=== PATIENT | female | born 1985 | race Caucasian/White ===

== ENCOUNTER 2016-08-02 13:27 | Emergency (ER) | payer MEDICAID ==
[~2016-08-02] VITALS: Ht 149.9 cm; Wt 71.7 kg
[2016-08-02 13:34] VITALS: BP 133/73
--- NOTE | 2016-08-02 14:01 | NUR ---
to bed 1
--- NOTE | 2016-08-02 14:07 | NUR ---
PT PRESENTS TO ER W/ C/O THROAT PAIN, DIFFICULTY OF SWALLOWING X3 DAYS,NO DROOLING NOTED. PT STATES SHE'S HAVING SLIGHT CHEST PAIN FROM COUGHING,HX HYPOTHYROIDISM, PT AAO, SKIN WARM TO TOUCH RESP. EVEN AND UNLABORED, NO SOB NOTED, LUNGS CLEAR,.HOB ELEVATED.ALL MONITORS PLACED IN.SAFETY MEASURE INSTITUTED,NEDDS ATTENDED. MADE AWARE OF PT'S CONDITION.
--- NOTE | 2016-08-02 14:35 | NUR ---
DR PATTEN AT BEDSIDE
[2016-08-02] MEDS ORDERED: methylPREDNISolone SS 125 MG in WATER STERILE 2 ML IM ONE (14:40)
[2016-08-02] MEDS ORDERED: LIDOCAINE VISCOUS 2% 20 ML UDC PO ONE (14:40)
[2016-08-02] MEDS ORDERED: AMOXICILLIN 500 MG CAP PO ONE (14:40)
--- NOTE | 2016-08-02 15:00 | NUR ---
PT ASKED FOR A JUICE. PROVIDED PT W/ORANGE JUICE AND PT IS GRATEFUL
[2016-08-02 15:32] VITALS: BP 131/75
--- NOTE | 2016-08-02 15:33 | NUR ---
Patient discharged with v/s stable. Written and verbal after care instructions given and explained. Patient alert, oriented and verbalized understanding of instructions. Ambulatory with steady gait. All questions addressed prior to discharge. ID band removed. Patient advised to follow up with PMD. Rx of AUGMENTIN,LIDOCAINE,TYLENOL AND PREDNISONE given. Patient educated on indication of medication including possible reaction and side effects. Opportunity to ask questions provided and answered.PT STABLE NO DISTRESS NOTED.
== END 2016-08-02 15:33 | disposition home or self-care (01) ==
LOC: MED 13:27
DX: J03.90 Acute tonsillitis, unspecified (principal); E11.9 Type 2 diabetes mellitus without complications; Z88.6 Allergy status to analgesic agent
CPT/HCPCS: 81002; 81025; 96372; 99283; J2930

== ENCOUNTER 2017-04-24 18:51 | Emergency (ER) | payer SELFPAY ==
[~2017-04-24] VITALS: Ht 149.9 cm; Wt 63.7 kg
[2017-04-24 18:59] VITALS: BP 136/89
[2017-04-24 19:03] VITALS: BP 136/89
--- NOTE | 2017-04-24 19:04 | NUR ---
PATIENT PRESENTS TO ED WITH C/O RT FOOT PAIN 8/10; PER PT THINK SOMEBODY STEP ON HER FOOT A WK AGO HX; DENIES RX; DENIES DENIES N/V/D; SKIN IS PINK/WARM/DRY; AAOX4 WITH EVEN AND STEADY GAIT; LUNGS CLEAR BL; HR EVEN AND REGULAR; PT DENIES ANY FEVER, CP, SOB, OR COUGH AT THIS TIME; PATIENT STATES PAIN OF 8/10 AT THIS TIME; VSS; PATIENT POSITIONED FOR COMFORT; HOB ELEVATED; BEDRAILS UP X2; BED DOWN. ER MD MADE AWARE OF PT STATUS.
--- NOTE | 2017-04-24 19:09 | NUR ---
PT TAKEN TO BED 11
[2017-04-24] MEDS ORDERED: HYDROcodone/APAP 10/325 MG 1 TAB TAB PO STA (20:13)
[2017-04-24] MEDS ORDERED: AMOXICILLIN 500 MG CAP PO ONE (20:15)
--- NOTE | 2017-04-24 20:55 | NUR ---
Patient discharged with v/s stable. Written and verbal after care instructions given and explained. Patient alert, oriented and verbalized understanding of instructions. Ambulatory with steady gait. All questions addressed prior to discharge. ID band removed. Patient advised to follow up with PMD. Rx of NORCO AND AMOXICILLIN given. Patient educated on indication of medication including possible reaction and side effects. Opportunity to ask questions provided and answered.
== END 2017-04-24 20:55 | disposition home or self-care (01) ==
LOC: MED 18:51
DX: K08.89 Other specified disorders of teeth and supporting structures (principal); H66.92 Otitis media, unspecified, left ear; E11.9 Type 2 diabetes mellitus without complications; Z88.8 Allergy status to other drugs, medicaments and biological substances
CPT/HCPCS: 81002; 81025; 99283

== ENCOUNTER 2017-07-25 21:36 | Emergency (ER) | payer MEDICAID ==
[~2017-07-25] VITALS: Ht 149.9 cm; Wt 64.5 kg
[2017-07-25 21:44] VITALS: BP 125/77
--- NOTE | 2017-07-25 22:07 | NUR ---
pt ambulated to er bed 11
--- NOTE | 2017-07-25 22:08 | NUR ---
32/F CAME IN W C/O SOB/COUGH X 1 WEEK. PT REPORTS NONPRODUCTIVE COUGH WITH C/O PLEURITIC PAIN. ALL LUNG SOUNDS CBTA WITH EXP WHEEZING TO RT LOBES, SAT 98% RA, 20RR EVEN AND UNLABORED. DENIES FEVER/CHILLS. PMH: ASTHMA, NO RX
[2017-07-25] MEDS ORDERED: AZITHROMYCIN 250 MG TAB PO ONE (22:35)
[2017-07-25] MEDS ORDERED: predniSONE 20 MG TAB PO ONE (22:35)
[2017-07-25] MEDS ORDERED: ALBUTEROL 0.083% 2.5 MG/3 ML NEBU INH ONE (22:35)
[2017-07-25] MEDS ORDERED: IPRATROPIUM 0.02% 0.5 MG/2.5 ML NEBU INH ONE (22:35)
--- NOTE | 2017-07-25 23:43 | NUR ---
Patient discharged with v/s stable. Written and verbal after care instructions given and explained. Patient alert, oriented and verbalized understanding of instructions. Ambulatory with steady gait. All questions addressed prior to discharge. ID band removed. Patient advised to follow up with PMD. Rx of ZITHROMAX, PREDNISONE, ROBITUSSIN DM given. Patient educated on indication of medication including possible reaction and side effects. Opportunity to ask questions provided and answered.
[2017-07-26 00:01] VITALS: BP 134/74
== END 2017-07-25 23:43 | disposition home or self-care (01) ==
LOC: MED 21:36
DX: J45.909 Unspecified asthma, uncomplicated (principal); F17.210 Nicotine dependence, cigarettes, uncomplicated; Z88.5 Allergy status to narcotic agent
CPT/HCPCS: 71045; 94640; 99283; J7512; J7613; J7644

== ENCOUNTER 2018-05-15 23:00 | Emergency (ER) | payer MEDICAID ==
[~2018-05-15] VITALS: Ht 149.9 cm; Wt 68.9 kg
[2018-05-15 23:14] VITALS: BP 142/82
--- NOTE | 2018-05-15 23:18 | NUR ---
PT AMBULATORY TO [facility].
--- NOTE | 2018-05-16 00:10 | NUR ---
PT TO CHAIR E
[2018-05-16] MEDS ORDERED: ALBUTEROL SULFATE/IPRATROPIU 3 ML SOL IH ONE (00:40)
[2018-05-16] MEDS ORDERED: predniSONE 20 MG TAB PO ONE (00:40)
[2018-05-16 01:05] VITALS: BP 135/86
--- NOTE | 2018-05-16 01:05 | NUR ---
Patient discharged with v/s stable. Written and verbal after care instructions given and explained. Patient alert, oriented and verbalized understanding of instructions. Ambulatory with steady gait. All questions addressed prior to discharge. ID band removed. Patient advised to follow up with PMD. Rx of Albuterol inhaler, Guaiafenisen AC, and Prednisone given. Patient educated on indication of medication including possible reaction and side effects. Opportunity to ask questions provided and answered.
== END 2018-05-16 01:05 | disposition home or self-care (01) ==
LOC: MED 23:00
DX: J06.9 Acute upper respiratory infection, unspecified (principal); J45.901 Unspecified asthma with (acute) exacerbation; F17.210 Nicotine dependence, cigarettes, uncomplicated; E07.9 Disorder of thyroid, unspecified; Z88.6 Allergy status to analgesic agent; Z85.41 Personal history of malignant neoplasm of cervix uteri; Z98.51 Tubal ligation status
CPT/HCPCS: 36415; 87804; 94640; 94760; 99283; J7512; J7620; 99284

== ENCOUNTER 2018-08-07 00:07 | Emergency (ER) | payer MEDICAID ==
[~2018-08-07] VITALS: Ht 149.9 cm; Wt 70.3 kg
--- NOTE | 2018-08-07 00:20 | NUR ---
PT TAKEN TO BED 9
--- NOTE | 2018-08-07 00:35 | NUR ---
BIB S/O W/ C/O A SOAR THROAT. PT STATES TO HAVING THROAT PAIN WHEN SWALLOWING AND COUGHING THAT STARTED TODAY. TONSILS HAVE MODERATE REDNESS AND SWELLING, NO DISCHARGE NOTED AT THIS TIME. DENIES N/V/D; SKIN IS PINK/WARM/DRY; AAOX4 WITH EVEN AND STEADY GAIT; LUNGS CLEAR BL; HR EVEN AND REGULAR; PT DENIES ANY FEVER, CP,OR SOB AT THIS TIME; PATIENT STATES PAIN OF 7/10 AT THIS TIME; VSS; PATIENT POSITIONED FOR COMFORT; HOB ELEVATED; BEDRAILS UP X1; BED DOWN. ER MD MADE AWARE OF PT STATUS. PMH: CERVICAL CANCER, ASTHMA, DM, THYROID RX: DENIES
[2018-08-07] MEDS ORDERED: DEXAMETHASONE 10 MG/ML VIAL PO ONE (01:30)
[2018-08-07 01:49] VITALS: BP 134/81
--- NOTE | 2018-08-07 01:49 | NUR ---
Patient discharged with v/s stable. Written and verbal after care instructions given and explained. Patient alert, oriented and verbalized understanding of instructions. Ambulatory with steady gait. All questions addressed prior to discharge. ID band removed. Patient advised to follow up with PMD. Rx of AUGMENTIN, NAPROSYN given. Patient educated on indication of medication including possible reaction and side effects. Opportunity to ask questions provided and answered.
== END 2018-08-07 01:49 | disposition home or self-care (01) ==
LOC: MED 00:07
DX: J32.0 Chronic maxillary sinusitis (principal); J45.909 Unspecified asthma, uncomplicated; E11.9 Type 2 diabetes mellitus without complications; E07.9 Disorder of thyroid, unspecified; Z85.41 Personal history of malignant neoplasm of cervix uteri; Z88.6 Allergy status to analgesic agent
CPT/HCPCS: 87081; 87804; 99283; J1100; 36415

== ENCOUNTER 2018-08-09 05:02 | Emergency (ER) | payer MEDICAID ==
[~2018-08-09] VITALS: Ht 149.9 cm; Wt 70.3 kg
[2018-08-09 05:10] VITALS: BP 125/88
[2018-08-09] MEDS ORDERED: ONDANSETRON 4 MG ODT PO ONE (05:15)
--- NOTE | 2018-08-09 05:18 | NUR ---
PT TO ED WITH C/O ABD ACHING WITH N/V/D X 1 DAY. PT ALSO REPORTING GENERALIZED WEAKNESS. BOWEL SOUNDS PRESENT TO ALL QUADRANTS. DENIES PAIN UPON PALPATION. PT PLACED INTO BED, PENDING MD CARDOSO.
[2018-08-09] MEDS ORDERED: NACL 0.9% 1,000 ML IV ONE (05:50)
[2018-08-09] MEDS ORDERED: methylPREDNISolone SS 125 MG/2 ML VIAL IVP ONE (05:50)
[2018-08-09] MEDS ORDERED: ONDANSETRON 4 MG/2 ML VIAL IVP ONE (05:50)
[2018-08-09 07:06] VITALS: BP 133/71
--- NOTE | 2018-08-09 07:06 | NUR ---
Patient discharged with v/s stable. Written and verbal after care instructions given and explained. Patient alert, oriented and verbalized understanding of instructions. Ambulatory with steady gait. All questions addressed prior to discharge. ID band removed. Patient advised to follow up with PMD. Rx of Zofran and Prednisone given. Patient educated on indication of medication including possible reaction and side effects. Opportunity to ask questions provided and answered.
--- NOTE | 2018-08-11 21:33 | NUR ---
CALLED PT TO HAVE HER COME BACK IN FOR ER MD SKINNER
== END 2018-08-09 07:06 | disposition home or self-care (01) ==
LOC: MED 05:02
DX: J02.8 Acute pharyngitis due to other specified organisms (principal); B97.89 Other viral agents as the cause of diseases classified elsewhere; R11.2 Nausea with vomiting, unspecified; J45.909 Unspecified asthma, uncomplicated; Z85.41 Personal history of malignant neoplasm of cervix uteri; Z88.6 Allergy status to analgesic agent
CPT/HCPCS: 87081; 87804; 96361; 96374; 96375; 99283; J2405; J2930; J7030; Q0162; 36415

== ENCOUNTER 2018-08-11 23:05 | Emergency (ER) | payer MEDICAID ==
[~2018-08-11] VITALS: Ht 149.9 cm; Wt 70.3 kg
[2018-08-11 23:15] VITALS: BP 127/76
--- NOTE | 2018-08-11 23:39 | NUR ---
Patient ambulated to bed 2. RN evaluating patient at bedside.
--- NOTE | 2018-08-11 23:45 | NUR ---
PT BIB FAMILY FOR N/V/D AND HEADACHE X4 DAYS. PT REPORTS THROBING HEADACHE AT 9/10 ALONG WITH BODY ACHES AT 9/10. PT REPORTS UNABLE TO KEEP FOOD DOWN, AND FEELS DEHYDRATED. PT REPORTED BEING TOLD TO COME BACK INTO ER FOR POSITIVE INFLUENZA A RESULTS. VSS. ER MD TO SEE PT. MEDHX:CERVICAL CANCER, ASTHMA, HYPOTHYROIDISM RX: SYNTHROID
[2018-08-12] MEDS ORDERED: ONDANSETRON 4 MG/2 ML VIAL IVP ONE (00:05)
[2018-08-12] MEDS ORDERED: fentaNYL 0.05 MG/ML VIAL IVP ONE (00:05)
[2018-08-12] MEDS ORDERED: NACL 0.9% 1,000 ML IV ONE (00:05)
[2018-08-12] MEDS ORDERED: PENICILLIN G BENZATHINE L-A 1.2 MU/2 ML SYR IM ONE (00:05)
[2018-08-12 00:52] LABS: BASOPHILS % (AUTO) 0.2 % (0.0-2.0); EOSINOPHILS # (AUTO) 0.3 K/uL (0-0.4); EOSINOPHILS % (AUTO) 2.6 % (0.0-4.0); HEMATOCRIT 38.3 % (36-48); HEMOGLOBIN 12.7 g/dL (12.0-16.0); LYMPHOCYTES % (AUTO) 19.1 % (20.5-51.1); MEAN CORPUSCULAR HEMOGLOBIN 28 pg (27-31); MEAN CORPUSCULAR HGB CONC 33 g/dL (33-37); MEAN CORPUSCULAR VOLUME 83.3 fL (80-94); MONOCYTES # (AUTO) 0.9 K/uL (0.8-1.0); MONOCYTES % (AUTO) 8.4 % (1.7-9.3); NEUTROPHILS # (AUTO) 7.2 K/uL (1.8-7.7); NEUTROPHILS % (AUTO) 69.7 % (42.2-75.2); PLATELET COUNT (AUTO) 239 K/uL (140-450); RED CELL DISTRIBUTION WIDTH 12.7 % (11.6-13.7); WHITE BLOOD COUNT (AUTO) 10.4 K/uL (4.8-10.8)
[2018-08-12 01:04] LABS: ANION GAP 8.1 (8-16); CREATININE 0.9 mg/dL (0.6-1.3); POTASSIUM 3.1 mmol/L (3.5-5.1)
[2018-08-12 01:09] LABS: ALBUMIN 3.3 g/dL (3.4-5.0); TOTAL BILIRUBIN 0.3 mg/dL (0.0-1.0)
[2018-08-12] MEDS ORDERED: POTASSIUM CHLORIDE 20% 40 MEQ/15 ML UDC PO ONE (01:15)
[2018-08-12 01:51] VITALS: BP 113/74
--- NOTE | 2018-08-12 01:51 | NUR ---
Patient discharged with v/s stable. Written and verbal after care instructions given and explained. Patient alert, oriented and verbalized understanding of instructions. Ambulatory with steady gait. All questions addressed prior to discharge. ID band removed. Patient advised to follow up with PMD. Rx of ZOFRAN, MOTRIN, AMOXICILLIN, AND LIDOCAINE given. Patient educated on indication of medication including possible reaction and side effects. Opportunity to ask questions provided and answered. PT IS WAITING IN LOBBY FOR BOYFRIEND TO PICK HER UP.
== END 2018-08-12 01:57 | disposition home or self-care (01) ==
LOC: MED 23:05
DX: J02.0 Streptococcal pharyngitis (principal); E87.6 Hypokalemia; J45.909 Unspecified asthma, uncomplicated; E11.9 Type 2 diabetes mellitus without complications; E07.9 Disorder of thyroid, unspecified; Z85.41 Personal history of malignant neoplasm of cervix uteri; Z79.82 Long term (current) use of aspirin
CPT/HCPCS: 36415; 80053; 83690; 85025; 87040; 96372; 96374; 96375; 99283; J0561; J2405; J3010; J7030

== ENCOUNTER 2020-06-20 17:59 | Emergency (ER) | payer MEDICAID ==
[~2020-06-20] VITALS: Ht 149.9 cm; Wt 69.4 kg
[2020-06-20 18:34] VITALS: BP 135/86
[2020-06-20 19:40] VITALS: BP 135/86
--- NOTE | 2020-06-20 19:45 | NUR ---
SEEN AND EXAMINED BY IMELDA
--- NOTE | 2020-06-20 20:09 | NUR ---
PATIENT ELOPED FROM FACILITY. DISCHARGE INSTRUCTIONS NOT GIVEN TO PATIENT. DR. HURST NOTIFIED.
== END 2020-06-20 20:09 | disposition left against medical advice (07) ==
LOC: MED 17:59
DX: R05 Cough (principal); R06.02 Shortness of breath; M54.5 Low back pain; Z53.21 Procedure and treatment not carried out due to patient leaving prior to being seen by health care provider

== ENCOUNTER 2020-08-20 09:17 | Emergency (ER) | payer MEDICAID, OTHER ==
[~2020-08-20] VITALS: Ht 149.9 cm; Wt 73.9 kg
[2020-08-20 09:20] VITALS: BP 126/95
--- NOTE | 2020-08-20 09:24 | NUR ---
PT AMBULATED TO BED 8.
--- NOTE | 2020-08-20 09:32 | NUR ---
Dr. Dale at pt bedside for further evaluation.
[2020-08-20] MEDS ORDERED: MORPHINE SULFATE 2 MG/ML SYR IVP ONE (09:40)
[2020-08-20] MEDS ORDERED: NACL 0.9% 500 ML IV ONE (09:40)
[2020-08-20 09:50] LABS: BASOPHILS # (AUTO) 0.1 K/uL (0.00-0.22); BASOPHILS % (AUTO) 0.6 % (0.0-2.0); EOSINOPHILS # (AUTO) 0.1 K/uL (0-0.4); HEMOGLOBIN 13.2 g/dL (12.0-16.0); LYMPHOCYTES # (AUTO) 1.9 K/uL (2.5-16.5); LYMPHOCYTES % (AUTO) 20.1 % (20.5-51.1); MEAN CORPUSCULAR HEMOGLOBIN 27 pg (27-31); MEAN CORPUSCULAR HGB CONC 33 g/dL (33-37); MEAN CORPUSCULAR VOLUME 80.8 fL (80-94); MONOCYTES # (AUTO) 0.6 K/uL (0.8-1.0); MONOCYTES % (AUTO) 6.5 % (1.7-9.3); NEUTROPHILS # (AUTO) 6.6 K/uL (1.8-7.7); NEUTROPHILS % (AUTO) 71.8 % (42.2-75.2); PLATELET COUNT (AUTO) 299 K/uL (140-450); RED BLOOD CELL COUNT(AUTO) 4.96 MIL/uL (4.20-5.40); WHITE BLOOD COUNT (AUTO) 9.2 K/uL (4.8-10.8)
--- NOTE | 2020-08-20 09:57 | NUR ---
Pt taken to CT via rad.
[2020-08-20 10:08] LABS: ALBUMIN 4.1 g/dL (3.4-5.0); ANION GAP 14.8 (8-16); CARBON DIOXIDE 25.5 mmol/L (21-32); POTASSIUM 4.3 mmol/L (3.5-5.1); TOTAL BILIRUBIN 0.3 mg/dL (0.0-1.0)
--- NOTE | 2020-08-20 10:09 | NUR ---
Pt brought backl from CT via [facility] [place].
[2020-08-20] MEDS ORDERED: ONDA4TAB PO (10:57)
[2020-08-20] MEDS ORDERED: HYDR-5080 PO (10:57)
[2020-08-20] MEDS ORDERED: MORPHINE SULFATE 4 MG/ML SYR IVP ONE (11:10)
[2020-08-20 12:00] VITALS: BP 126/72
--- NOTE | 2020-08-20 12:00 | NUR ---
Patient discharged with v/s stable. Written and verbal after care instructions given and explained. Patient alert, oriented and verbalized understanding of instructions. Wheel Chair Assisted with to car. All questions addressed prior to discharge. ID band removed. Patient advised to follow up with PMD. Rx of norco 7.5-325mg PO q6h prn pain, and zofran 4mg odt prn q6h n/v given. Patient educated on indication of medication including possible reaction and side effects. Opportunity to ask questions provided and answered.
--- NOTE | 2020-08-20 12:17 | NUR ---
Family in ER lobby to take patient home.
--- NOTE | 2020-08-20 12:25 | NUR ---
Pt w/c assisted to car.
[2020-08-23] MEDS ORDERED: DOCU-299 PO (16:04)
[2020-08-23] MEDS ORDERED: ACET-9525 PO (16:04)
[2020-08-23] MEDS ORDERED: CEPH250C16 PO (16:04)
[2020-08-23] MEDS ORDERED: POLY17PD46 PO (16:04)
== END 2020-08-20 12:25 | disposition home or self-care (01) ==
LOC: MED 09:17
DX: N20.0 Calculus of kidney (principal); R03.0 Elevated blood-pressure reading, without diagnosis of hypertension; J45.909 Unspecified asthma, uncomplicated; F17.210 Nicotine dependence, cigarettes, uncomplicated; Z88.6 Allergy status to analgesic agent
CPT/HCPCS: 36415; 74176; 80053; 81002; 81025; 85025; 96374; 96376; 99284; J2270; J7030

== ENCOUNTER 2021-04-24 10:28 | Emergency (ER) | payer MEDICAID, OTHER, SELFPAY ==
[~2021-04-24] VITALS: Ht 149.9 cm; Wt 68.0 kg
[~2021-04-24 10:28] MED LIST: ACET-9525 PO; CEPH250C16 PO; DOCU-299 PO; HYDR-5080 PO; ONDA4TAB PO; POLY17PD46 PO
[2021-04-24 10:49] VITALS: BP 120/80
--- NOTE | 2021-04-24 11:09 | NUR ---
pt c/o left foot pain, swelling, noticed 2 wounds to bottom of toes 3 days ago. foot is swollen with redness.
[2021-04-24] MEDS ORDERED: HYDROcodone/APAP 5/325 MG 1 TAB TAB PO ONE (11:45)
[2021-04-24] MEDS ORDERED: SULF-59 PO (12:23)
[2021-04-24] MEDS ORDERED: CEPH-588 PO (12:23)
[2021-04-24] MEDS ORDERED: IBUP-2213 PO (12:23)
[2021-04-24] MEDS ORDERED: ACET-8386 PO (12:23)
[2021-04-24 12:51] VITALS: BP 120/80
--- NOTE | 2021-04-24 12:51 | NUR ---
Patient discharged with v/s stable. Written and verbal after care instructions given and explained. Patient alert, oriented and verbalized understanding of instructions. Ambulatory with steady gait. All questions addressed prior to discharge. ID band removed. Patient advised to follow up with PMD. Rx of HYDROCODONE/ACETAMINOPHEN, KEFLEX, IBUPROFEN, AND BACTRIM given. Patient educated on indication of medication including possible reaction and side effects. Opportunity to ask questions provided and answered.
== END 2021-04-24 12:51 | disposition home or self-care (01) ==
LOC: MED 10:28
DX: S90.922A Unspecified superficial injury of left foot, initial encounter (principal); X58.XXXA Exposure to other specified factors, initial encounter; Y93.89 Activity, other specified; Y92.89 Other specified places as the place of occurrence of the external cause; Y99.8 Other external cause status
CPT/HCPCS: 73660; 90471; 90715; 99283

== ENCOUNTER 2021-10-14 20:48 | Emergency (ER) | payer MEDICAID ==
[~2021-10-14] VITALS: Ht 149.9 cm; Wt 64.9 kg
[~2021-10-14 20:48] MED LIST changes: +ACET-8386 PO; +CEPH-588 PO; +IBUP-2213 PO; +SULF-59 PO
[2021-10-14 21:08] VITALS: BP 134/78
--- NOTE | 2021-10-14 22:38 | NUR ---
Dr. Diamond examining patient.
[2021-10-14] MEDS ORDERED: MORPHINE SULFATE 4 MG/ML SYR IVP ONE (22:45)
[2021-10-14] MEDS ORDERED: NACL 0.9% 1,000 ML IV SCH (22:45)
[2021-10-14 23:00] LABS: BASOPHILS % (AUTO) 0.4 % (0.0-2.0); EOSINOPHILS # (AUTO) 0.1 K/uL (0-0.4); EOSINOPHILS % (AUTO) 1.3 % (0.0-4.0); HEMATOCRIT 36.7 % (36-48); HEMOGLOBIN 12.2 g/dL (12.0-16.0); LYMPHOCYTES # (AUTO) 0.8 K/uL (2.5-16.5); LYMPHOCYTES % (AUTO) 13.9 % (20.5-51.1); MEAN CORPUSCULAR HEMOGLOBIN 26 pg (27-31); MEAN CORPUSCULAR HGB CONC 33 g/dL (33-37); MONOCYTES # (AUTO) 0.7 K/uL (0.8-1.0); MONOCYTES % (AUTO) 11.9 % (1.7-9.3); NEUTROPHILS # (AUTO) 4.3 K/uL (1.8-7.7); NEUTROPHILS % (AUTO) 72.5 % (42.2-75.2); PLATELET COUNT (AUTO) 218 K/uL (140-450); RED BLOOD CELL COUNT(AUTO) 4.76 MIL/uL (4.20-5.40); RED CELL DISTRIBUTION WIDTH 14.2 % (11.6-13.7); WHITE BLOOD COUNT (AUTO) 5.9 K/uL (4.8-10.8)
--- NOTE | 2021-10-14 23:07 | NUR ---
36 Y/O F BIBS FROM HOME C/O OF BACK PAIN X 1 WEEK, STARTING FROM THE BACK OF HEAD DOWN TH SPINAL CORD. "IT FEELS LIKE ELECTRICAL SHOCK" "I HAVE TINGLING SENSATIONS" DENIES INJURY PMH: MS, HYPOTHYROID, KIDNEY STONES, CERVICAL CA, ASTHMA MEDS:DENIES ASPIRIN ALLERGY
[2021-10-14 23:09] LABS: APPEARANCE,URINE CLEAR (CLEAR); BILIRUBIN,URINE NEGATIVE (NEGATIVE); BLOOD, URINE NEGATIVE (NEGATIVE); COLOR,URINE YELLOW (YELLOW); LEUKOCYTE ESTERASE ,URINE TRACE (NEGATIVE); NITRITE, URINE POSITIVE (NEGATIVE); UGLUCOSE NEGATIVE (NEGATIVE)
[2021-10-14 23:23] LABS: RBC,URINE 0-5 /HPF (0-5); WBC,URINE 20-60 /HPF (0-5)
[2021-10-14 23:26] LABS: ALBUMIN 3.5 g/dL (3.4-5.0); ANION GAP 11.5 (8-16); CARBON DIOXIDE 28.4 mmol/L (21-32); CREATININE 0.9 mg/dL (0.6-1.3); POTASSIUM 3.9 mmol/L (3.5-5.1); TOTAL BILIRUBIN 0.1 mg/dL (0.0-1.0)
--- NOTE | 2021-10-14 23:39 | NUR ---
PT TAKEN TO CT
--- NOTE | 2021-10-14 23:48 | NUR ---
PT RETURN FROM CT
--- NOTE | 2021-10-15 01:20 | NUR ---
Patient appears to be resting comfortably in bed. Respirations even and unlabored.
[2021-10-15] MEDS ORDERED: CIPR500T4 PO ×2 (02:53→02:55)
[2021-10-15] MEDS ORDERED: ACET-8386 PO ×2 (02:53→02:55)
--- NOTE | 2021-10-15 03:00 | NUR ---
Patient discharged with v/s stable. Written and verbal after care instructions given and explained. Patient alert, oriented and verbalized understanding of instructions. Ambulatory with steady gait. All questions addressed prior to discharge. ID band removed. Patient advised to follow up with PMD. Rx of norco 5/325, cipro given. Patient educated on indication of medication including possible reaction and side effects. Opportunity to ask questions provided and answered.
[2021-10-15 03:03] VITALS: BP 110/59
== END 2021-10-15 03:00 | disposition home or self-care (01) ==
LOC: MED 20:48
DX: N12 Tubulo-interstitial nephritis, not specified as acute or chronic (principal); M54.50 Low back pain, unspecified; J45.909 Unspecified asthma, uncomplicated; Z85.41 Personal history of malignant neoplasm of cervix uteri; Z98.890 Other specified postprocedural states; Z79.891 Long term (current) use of opiate analgesic; Z79.1 Long term (current) use of non-steroidal anti-inflammatories (NSAID); Z79.2 Long term (current) use of antibiotics; Z79.899 Other long term (current) drug therapy; Z88.6 Allergy status to analgesic agent
CPT/HCPCS: 36415; 74176; 80053; 81001; 81025; 83690; 85025; 87086; 96361; 96374; 99284; J2270; J7030

== ENCOUNTER 2023-06-03 19:54 | Emergency (ER) | payer SELFPAY ==
[~2023-06-03] VITALS: Ht 149.9 cm; Wt 78.5 kg
[~2023-06-03 19:54] MED LIST changes: -ACET-8386 PO; +ACET-8905 PO; +CIPR500T4 PO
[2023-06-03 20:19] VITALS: BP 138/85; PULSE 98; RESP 17; TEMP 97.6; O2SAT 98
[2023-06-03 21:01] VITALS: O2SAT 98
[2023-06-03 21:05] LABS: BASOPHILS % (AUTO) 0.2 % (0.0-2.0); EOSINOPHILS # (AUTO) 0.2 K/uL (0-0.4); EOSINOPHILS % (AUTO) 2.1 % (0.0-4.0); HEMATOCRIT 35.6 % (36-48); HEMOGLOBIN 11.9 g/dL (12.0-16.0); LYMPHOCYTES # (AUTO) 1.6 K/uL (2.5-16.5); LYMPHOCYTES % (AUTO) 16.4 % (20.5-51.1); MEAN CORPUSCULAR HEMOGLOBIN 25 pg (27-31); MEAN CORPUSCULAR HGB CONC 33 g/dL (33-37); MEAN CORPUSCULAR VOLUME 75.5 fL (80-94); MONOCYTES # (AUTO) 0.7 K/uL (0.8-1.0); MONOCYTES % (AUTO) 7.6 % (1.7-9.3); NEUTROPHILS % (AUTO) 73.7 % (42.2-75.2); PLATELET COUNT (AUTO) 262 K/uL (140-450); RED BLOOD CELL COUNT(AUTO) 4.72 MIL/uL (4.20-5.40); RED CELL DISTRIBUTION WIDTH 15.2 % (11.6-13.7); WHITE BLOOD COUNT (AUTO) 9.5 K/uL (4.8-10.8)
[2023-06-03 21:15] LABS: FLU A ANTIGEN negative (NEGATIVE); FLU B ANTIGEN negative (NEGATIVE)
[2023-06-03 21:15] LABS: APPEARANCE,URINE CLEAR (CLEAR); BILIRUBIN,URINE NEGATIVE (NEGATIVE); BLOOD, URINE 3+ (NEGATIVE); COLOR,URINE YELLOW (YELLOW); LEUKOCYTE ESTERASE ,URINE NEGATIVE (NEGATIVE); NITRITE, URINE NEGATIVE (NEGATIVE); PH,URINE 7.5 (5.0-9.0); PROTEIN,URINE NEGATIVE (NEGATIVE); UGLUCOSE NEGATIVE (NEGATIVE); UROBILINOGEN,URINE 0.2 EU/dL (0.2 - 1)
[2023-06-03 21:20] LABS: ANION GAP 8.3 (8-16); CREATININE 0.8 mg/dL (0.6-1.3); POTASSIUM 4.3 mmol/L (3.5-5.1)
[2023-06-03 21:35] LABS: BACTERIA,URINE 2+ /HPF (None Seen); MUCUS,URINE 1+ /LPF (None Seen); RBC,URINE 20-50 /HPF (0-5); SQUAMOUS EPITHELIAL CELL,UR 4-10 (MOD) /LPF (0-3 (FEW)); TRICHOMONAS,URINE None Seen /HPF (None Seen); WBC,URINE 0-5 /HPF (0-5); YEAST,URINE None Seen /HPF (None Seen)
[2023-06-03 21:37] LABS: ALBUMIN 3.3 g/dL (3.4-5.0); FREE T4 (FREE THYROXINE) 0.5 ng/dL (0.76-1.46); THYROID STIMULATING HORMONE 49.91 uIU/mL (0.34-3.74); TOTAL BILIRUBIN 0.1 mg/dL (0.0-1.0)
[2023-06-03] MEDS ORDERED: SYN.05 PO (21:57)
[2023-06-03] MEDS ORDERED: KEN.1O TP (21:59)
[2023-06-03] MEDS ORDERED: LORA10TA19 PO (21:59)
== END 2023-06-03 22:12 | disposition home or self-care (01) ==
LOC: MED 19:54
DX: E03.9 Hypothyroidism, unspecified (principal); Z20.822 Contact with and (suspected) exposure to COVID-19; J45.909 Unspecified asthma, uncomplicated; Z79.82 Long term (current) use of aspirin; Z79.899 Other long term (current) drug therapy
CPT/HCPCS: 36415; 80048; 80076; 81001; 81025; 83690; 83880; 84439; 84443; 85025; 87086; 99283

== ENCOUNTER 2023-09-03 00:28 | Inpatient (IN) | payer MEDICAID ==
[~2023-09-03] VITALS: Ht 149.9 cm; Wt 79.4 kg
[~2023-09-03 00:28] MED LIST changes: +KEN.1O TP; +LORA10TA19 PO; +SYN.05 PO
[2023-09-03 00:34] VITALS: BP 96/82; PULSE 115; RESP 16; TEMP 97.4; O2SAT 97
[2023-09-03] MEDS ORDERED: VANCOMYCIN 1,000 MG VIAL ONE (02:27)
[2023-09-03 02:34] LABS: BASOPHILS # (AUTO) 0.1 K/uL (0.00-0.22); BASOPHILS % (AUTO) 0.5 % (0.0-2.0); EOSINOPHILS # (AUTO) 0.1 K/uL (0-0.4); EOSINOPHILS % (AUTO) 0.5 % (0.0-4.0); HEMATOCRIT 30.8 % (36-48); HEMOGLOBIN 10.7 g/dL (12.0-16.0); LYMPHOCYTES # (AUTO) 1.3 K/uL (2.5-16.5); LYMPHOCYTES % (AUTO) 9.1 % (20.5-51.1); MEAN CORPUSCULAR HEMOGLOBIN 25 pg (27-31); MEAN CORPUSCULAR HGB CONC 35 g/dL (33-37); MEAN CORPUSCULAR VOLUME 71.5 fL (80-94); MONOCYTES # (AUTO) 0.8 K/uL (0.8-1.0); MONOCYTES % (AUTO) 5.5 % (1.7-9.3); NEUTROPHILS # (AUTO) 11.7 K/uL (1.8-7.7); NEUTROPHILS % (AUTO) 84.4 % (42.2-75.2); PLATELET COUNT (AUTO) 328 K/uL (140-450); RED CELL DISTRIBUTION WIDTH 14.7 % (11.6-13.7); WHITE BLOOD COUNT (AUTO) 13.8 K/uL (4.8-10.8)
[2023-09-03] MEDS: VANCOMYCIN 1,000 MG in DEXTROSE 5% 250 ML IV ONE (02:39)
[2023-09-03] MEDS: NACL 0.9% 2,000 ML IV ONE (02:39)
[2023-09-03] MEDS: HYDROmorphone PFS 2 MG/ML SYR IVP ONE (02:40)
[2023-09-03] MEDS: ONDANSETRON 4 MG/2 ML VIAL IVP ONE (02:41)
[2023-09-03 02:57] LABS: ANION GAP 12.2 (8-16); CALCIUM 8.6 mg/dL (8.5-10.1); CARBON DIOXIDE 29.3 mmol/L (21-32); POTASSIUM 3.5 mmol/L (3.5-5.1)
[2023-09-03 03:19] LABS: LACTIC ACID 2.2 mmol/L (0.4-2.0)
[2023-09-03 03:30] LABS: ALBUMIN 3.2 g/dL (3.4-5.0); BILIRUBIN,DIRECT 0.1 mg/dL (0.0-0.3); TOTAL BILIRUBIN 0.3 mg/dL (0.0-1.0); TOTAL PROTEIN, SERUM 7.9 g/dL (6.4-8.2)
[2023-09-03] MEDS: NACL 0.9% 1,000 ML IV ONE (05:45)
[2023-09-03 08:00] VITALS: PULSE 94; RESP 16; O2SAT 97
[2023-09-03 08:04] LABS: APPEARANCE,URINE CLOUDY (CLEAR); BILIRUBIN,URINE NEGATIVE (NEGATIVE); BLOOD, URINE 3+ (NEGATIVE); COLOR,URINE RED (YELLOW); LEUKOCYTE ESTERASE ,URINE 1+ (NEGATIVE); NITRITE, URINE NEGATIVE (NEGATIVE); PH,URINE 6.5 (5.0-9.0); PROTEIN,URINE 2+ (NEGATIVE); UGLUCOSE NEGATIVE (NEGATIVE); UROBILINOGEN,URINE 0.2 EU/dL (0.2 - 1)
[2023-09-03 08:20] LABS: BACTERIA,URINE 2+ /HPF (None Seen); RBC,URINE >20 (MANY) /HPF (0-5); SQUAMOUS EPITHELIAL CELL,UR 4-10 (MOD) /LPF (0-3 (FEW)); WBC,URINE 16-25 (MOD) /HPF (0-5)
[2023-09-03 08:21] LABS: TRICHOMONAS,URINE Moderate /HPF (None Seen)
[2023-09-03] MEDS ORDERED: VANCOMYCIN PER PHARMACY MC PRN (08:25)
[2023-09-03] MEDS: DEXT 5% / NACL 0.45% 1,000 ML IV SCH (09:54)
[2023-09-03] MEDS ORDERED: INSULIN LISPRO SLIDING SCALE 100 UNITS/ML VIAL SUBQ PRN (11:00)
[2023-09-03] MEDS ORDERED: POTASSIUM CHLORIDE 10 MEQ TABER PO PRN (11:00)
[2023-09-03] MEDS ORDERED: MAG SULF 2000 MG/WATER PREMIX 50 ML IV PRN (11:00)
[2023-09-03] MEDS ORDERED: ONDANSETRON 4 MG/2 ML VIAL IVP PRN (11:00)
[2023-09-03] MEDS ORDERED: DEXTROSE 50% 50 ML SYR IVP PRN (11:00)
[2023-09-03] MEDS ORDERED: DOCUSATE SODIUM 100 MG GELCAP PO PRN (11:00)
[2023-09-03] MEDS ORDERED: ZOLPIDEM 10 MG TAB PO PRN (11:00)
[2023-09-03] MEDS: MORPHINE SULFATE 2 MG/ML SYR IVP PRN (11:20)
[2023-09-03] MEDS: BLOOD GLUCOSE MONITORING 1 DEV DEV FS SCH (11:27)
[2023-09-03 12:00] VITALS: BP 108/63; PULSE 94; RESP 18; TEMP 97.1; O2SAT 98
[2023-09-03] MEDS: PIPERACILLIN/TAZOBACTAM 3.375 GM in DEXTROSE 5% 50 ML IV SCH (13:22)
[2023-09-03 16:00] VITALS: BP 109/71; PULSE 94; RESP 18; TEMP 97.3; O2SAT 98
[2023-09-03] MEDS: ACETAMINOPHEN 325 MG TAB PO PRN (18:48)
[2023-09-03 20:00] VITALS: BP 108/60; PULSE 95; RESP 18; TEMP 98; O2SAT 96
[2023-09-03 20:05] VITALS: PULSE 103
[2023-09-04] VITALS (11 sets, daily range): BP systolic 92–106; BP diastolic 43–62; PULSE 82–125; RESP 17–20; TEMP 97.1–98; O2SAT 94–100
[2023-09-04] MEDS: VANCOMYCIN 1,000 MG in DEXTROSE 5% 250 ML IV SCH (01:58)
[2023-09-04 06:09] LABS: BASOPHILS % (AUTO) 0.4 % (0.0-2.0); EOSINOPHILS # (AUTO) 0.2 K/uL (0-0.4); EOSINOPHILS % (AUTO) 1.7 % (0.0-4.0); HEMATOCRIT 28.5 % (36-48); HEMOGLOBIN 9.4 g/dL (12.0-16.0); LYMPHOCYTES # (AUTO) 1.4 K/uL (2.5-16.5); LYMPHOCYTES % (AUTO) 13.9 % (20.5-51.1); MEAN CORPUSCULAR HEMOGLOBIN 24 pg (27-31); MEAN CORPUSCULAR HGB CONC 33 g/dL (33-37); MEAN CORPUSCULAR VOLUME 71.5 fL (80-94); MONOCYTES # (AUTO) 0.6 K/uL (0.8-1.0); MONOCYTES % (AUTO) 5.9 % (1.7-9.3); NEUTROPHILS # (AUTO) 7.7 K/uL (1.8-7.7); NEUTROPHILS % (AUTO) 78.1 % (42.2-75.2); PLATELET COUNT (AUTO) 279 K/uL (140-450); RED BLOOD CELL COUNT(AUTO) 3.99 MIL/uL (4.20-5.40); RED CELL DISTRIBUTION WIDTH 15.2 % (11.6-13.7); WHITE BLOOD COUNT (AUTO) 9.9 K/uL (4.8-10.8)
[2023-09-04 06:41] LABS: ALBUMIN 2.4 g/dL (3.4-5.0); ANION GAP 11.8 (8-16); CREATININE 0.9 mg/dL (0.6-1.3); POTASSIUM 3.8 mmol/L (3.5-5.1); TOTAL BILIRUBIN 0.2 mg/dL (0.0-1.0); TOTAL PROTEIN, SERUM 6.5 g/dL (6.4-8.2)
[2023-09-04] MEDS ORDERED: ALBUTEROL SULFATE/IPRATROPIU 3 ML SOL IH PRN (10:45)
[2023-09-04] MEDS ORDERED: BENZONATATE 100 MG CAPLF PO PRN (10:45)
[2023-09-04] MEDS: FUROSEMIDE 20 MG/2 ML VIAL IVP ONE (11:10)
[2023-09-04] MEDS ORDERED: DEXTROSE 50% 50 ML SYR IVP PRN (11:40)
[2023-09-04] MEDS ORDERED: INSULIN LISPRO SLIDING SCALE 100 UNITS/ML VIAL SUBQ PRN (11:40)
[2023-09-04] MEDS: VANCOMYCIN 750 MG in DEXTROSE 5% 250 ML IV SCH (13:39)
[2023-09-04] MEDS ORDERED: BLOOD GLUCOSE MONITORING 1 DEV DEV FS SCH (16:30)
[2023-09-04] MEDS: BENZONATATE 100 MG CAPLF PO PRN (21:48)
[2023-09-05] VITALS (7 sets, daily range): BP systolic 94–119; BP diastolic 45–76; PULSE 85–118; RESP 18–20; TEMP 97–98; O2SAT 98–99
[2023-09-05 05:37] LABS: BASOPHILS # (AUTO) 0.1 K/uL (0.00-0.22); BASOPHILS % (AUTO) 0.5 % (0.0-2.0); EOSINOPHILS # (AUTO) 0.3 K/uL (0-0.4); EOSINOPHILS % (AUTO) 2.7 % (0.0-4.0); HEMATOCRIT 29.7 % (36-48); HEMOGLOBIN 9.8 g/dL (12.0-16.0); LYMPHOCYTES # (AUTO) 1.2 K/uL (2.5-16.5); LYMPHOCYTES % (AUTO) 12.2 % (20.5-51.1); MEAN CORPUSCULAR HEMOGLOBIN 24 pg (27-31); MEAN CORPUSCULAR HGB CONC 33 g/dL (33-37); MEAN CORPUSCULAR VOLUME 72.1 fL (80-94); MONOCYTES # (AUTO) 0.6 K/uL (0.8-1.0); MONOCYTES % (AUTO) 5.7 % (1.7-9.3); NEUTROPHILS # (AUTO) 7.9 K/uL (1.8-7.7); NEUTROPHILS % (AUTO) 78.9 % (42.2-75.2); PLATELET COUNT (AUTO) 283 K/uL (140-450); RED BLOOD CELL COUNT(AUTO) 4.12 MIL/uL (4.20-5.40); RED CELL DISTRIBUTION WIDTH 14.6 % (11.6-13.7)
[2023-09-05 06:51] LABS: ALBUMIN 2.6 g/dL (3.4-5.0); ANION GAP 11.9 (8-16); CALCIUM 8.1 mg/dL (8.5-10.1); CARBON DIOXIDE 28.9 mmol/L (21-32); CREATININE 0.9 mg/dL (0.6-1.3); POTASSIUM 3.8 mmol/L (3.5-5.1); TOTAL BILIRUBIN 0.2 mg/dL (0.0-1.0); TOTAL PROTEIN, SERUM 7.2 g/dL (6.4-8.2)
[2023-09-05] MEDS: VANCOMYCIN 1,000 MG in DEXTROSE 5% 250 ML IV SCH (09:16)
[2023-09-05] MEDS ORDERED: CLIN150C1 PO (11:26)
== END 2023-09-05 16:10 | disposition home or self-care (01) | DRG 720 ==
LOC: MED 00:28 → MTU 05:30
PROVIDERS: ADMIT Student in an Organized Health Care Education/Training Program; ATTEND Student in an Organized Health Care Education/Training Program
DX: A41.9 Sepsis, unspecified organism (principal); J15.69 Pneumonia due to other Gram-negative bacteria; E44.0 Moderate protein-calorie malnutrition; J15.9 Unspecified bacterial pneumonia; L02.213 Cutaneous abscess of chest wall; R73.9 Hyperglycemia, unspecified; D53.9 Nutritional anemia, unspecified; Z68.35 Body mass index [BMI] 35.0-35.9, adult
CPT/HCPCS: 36415; 71045; 71260; 80048; 80053; 80076; 80202; 81001; 82948; 83605; 85025; 87040; 87070; 87081; 87086; 87186; 93005; 96374; 96375; 99291; J1170; J1644; J1940; J2270; J2405; J2543; J3370; J7060; Q0092; Q9967